=== PATIENT | female | born 1965 | race Caucasian/White ===

== ENCOUNTER 2025-10-17 07:43 | Emergency (ER) | payer BC, SELFPAY ==
[2025-10-17 07:53] VITALS: BP 127/95
[2025-10-17 08:31] VITALS: BMI 30.3
--- NOTE | 2025-10-17 08:35 | ED.GENMED ---
History of Present Illness
General
Chief Complaint: Abdominal Pain
Time Seen by Provider: 10/17/25 08:23
History of Present Illness
History of Present Illness:
59-year-old female presents to the emergency department for evaluation of left lower quadrant pain for the past 3 to 4 days. She states she had a bout of diverticulitis apparently 3 to 4 months ago that was treated by her primary doctor without
imaging, she did improve however symptoms have waxed and waned since that time. She is no fevers or chills. Has had colonoscopy showing diverticulosis but no confirmed imaging proof of diverticulitis. Denies nausea vomiting or diarrhea. No
history of intra-abdominal surgery
Review of Systems
Review of Systems
Allergies reviewed?: Yes
All Other Systems: ROS reviewed and negative except as documented in HPI and ROS
Phy Exam
Physical Exam
Physical Exam:
GEN: Well appearing, NAD, WDWN
HEENT: Oral mucosa moist, no scleral icterus
Cardiac: Regular rate
Lung: No respiratory distress, no tachypnea
Abdomen: Soft, mild left lower quadrant tenderness, no rigidity or peritoneal signs
MSK: No gross deformity or injuries
Skin: Good color, no pallor or jaundice, no rashes
Neuro: AO x3, moves all extremities freely
Psych: Calm, cooperative
Course
Orders/Labs/Results
Orders:
Orders
10/17/25 08:37
CT Abd/Pel (IV only)-DH only Urgent
Comment:
Reason For Exam: LLQ pain
10/17/25 08:46
Complete Blood Count/With Diff Urgent
Comprehensive Metabolic Panel Urgent
Abnormal Lab Results
10/17/25
08:46
WBC 13.4 H 10^3/uL
(4.8-10.8)
Abs Immat Gran (auto) 0.1 H 10^3/uL
(0-0.05)
Absolute Neuts (auto) 10.3 H 10^3/uL
(1.4-6.5)
Absolute Monos (auto) 1.1 H 10^3/uL
(0.1-0.6)
Neutrophils % 77.1 H %
(42.2-75.2)
Lymphocytes % 13.8 L %
(20.5-51.1)
Glucose 145 H mg/dl
(70-99)
10/17/25 08:46
10/17/25 08:46
Vital Signs
Initial and Last Documented VS:
Initial Vital Signs
Temp Pulse Resp BP Pulse Ox
98.4 F 113 18 127/95 97
10/17/25 07:53 10/17/25 07:53 10/17/25 07:53 10/17/25 07:53 10/17/25 07:53
Last Documented Vital Signs
Temp Pulse Resp BP Pulse Ox
98.4 F 113 18 111/75 94
10/17/25 07:53 10/17/25 07:53 10/17/25 07:53 10/17/25 09:00 10/17/25 09:30
MDM/Problems Addressed
MDM/Problems Addressed:
Imaging confirms acute diverticulitis with no perforation or abscess. Labs do show mild leukocytosis however no other abnormalities. Her exam is not concerning for peritonitis and thus she is suitable for outpatient management
*Pulse Oximetry
SaO2: 97
Oxygen Mode of Delivery: Room air
Patient hypoxic: no
*Critical Care Note
Total Time (30-74mins, 75-104mins- exclusive of procedures): Not Applicable
ED Attending Note
-
Portions of this chart may have been created with voice recognition software.� Occasional wrong word or��sound alike� substitutions may have occurred due to the inherent limitations of voice recognition software.
Discharge Plan
Departure
Patient Disposition: Home (Routine Discharge)
Date of Disposition: 12/08/25
Time of Disposition: 10:20
Patient with high blood pressure during this ER visit?: No
Discharge Problem:
Acute diverticulitis
Instructions: Clear Liquid Diet, Diverticulitis (DC)
Prescriptions:
New
amoxicillin-pot clavulanate 875-125 mg tablet
1 tab PO BID 10 Days Qty: 20 0RF
Referrals:
UNKNOWN - PT DOES,NOT KNOW [Family Provider]
Activity Restrictions/Additional Instructions:
Clear liquids x 48 hours, then gradually resume diet
High fiber diet to begin AFTER completion of antibiotics, aiming for 25-30 grams of fiber daily
Interventions
Interventions:
*Risk Screen - Suicide Last Done: 10/17/25 07:53
*General Assessment Last Done: 10/17/25 08:31
*Neglect/Abuse Screening Last Done: 10/17/25 08:31
*ED COVID-19 Vaccine History Last Done: 10/17/25 08:45
*ED Influenza Vaccine History Last Done: 10/17/25 08:45
[facility] Fall Risk Assessment Tool Last Done: 10/17/25 08:31
*Nursing Disposition Last Done: 10/17/25 10:53
FX-Sjdkmt-Nnqnnuyfai Assessment Last Done: 10/17/25 08:31
Discharge Date and Time
Discharge Date/Time: 10/17/25 10:54
Print Language: MALAGASY
[2025-10-17 08:46] VITALS: BP 121/71
[2025-10-17 09:00] VITALS: BP 111/75
[2025-10-17 09:02] LABS: Hematocrit 39.0 % (37.0-47.0); Hemoglobin 13.3 g/dL (12.0-16.0); Mean Corp Hgb Conc. 34.1 g/dL (33.0-37.0); Mean Corpuscular Volume 89.2 fL (81.0-99.0); Nucleated Red Blood Cells % 0 %; Platelet Count 194 10^3/uL (130-400); Red Cell Dist. Width 12.0 % (11.5-14.5)
[2025-10-17 09:11] LABS: ALT (SGPT) 31 U/L (0-35); AST (SGOT) 29 U/L (14-36); Albumin 4.6 g/dl (3.5-5.0); Alkaline Phosphatase 46 U/L (38-126); Blood Urea Nitrogen 12 mg/dl (7-17); Calcium 9.7 mg/dl (8.4-10.2); Carbon Dioxide 28 mmol/L (22-30); Chloride 100 mmol/L (98-107); Estimated Creatinine Clearance 84 ml/min; Glucose 145 mg/dl (70-99); Potassium 4.3 mmol/L (3.5-5.1); Sodium 135 mmol/L (135-145); Total Protein 7.5 g/dl (6.3-8.2); eGFR > 60.00
== END 2025-10-17 10:54 | disposition home or self-care (01) ==
LOC: EMR 07:43
PROVIDERS: EMERGENCY PHYSICIAN Physician Assistant
DX: K57.30 Diverticulosis of large intestine without perforation or abscess without bleeding (principal); D72.829 Elevated white blood cell count, unspecified
CPT/HCPCS: 99284; 74177; 80053; 85025; Q9967